=== PATIENT | male | born 1965 | race African-American/Black ===

== ENCOUNTER 2017-08-13 19:05 | Observation (INO) | payer OTHER ==
[2017-08-13 22:31] LABS: Anion Gap 18 mmol/L (10-20); BUN (Urea Nitrogen) 43 mg/dL (8.4-25.7); Calc. Creatinine Clearance 0 mL/min (70-130); Carbon Dioxide 21 mmol/L (22-29); Chloride 98 mmol/L (98-107); Estimated GFR-MDRD 23; Glucose 386 mg/dL (70-105); Potassium 4.3 mmol/L (3.5-5.1); Sodium 133 mmol/L (136-145)
[2017-08-13] MEDS ORDERED: Insulin Regular 300 UNITS/3 ML VIAL ONE (22:38)
[2017-08-13] MEDS ORDERED: HumaLOG 300 UNITS/3 ML VIAL SC PRN (22:58)
[2017-08-13] MEDS ORDERED: Dextrose 50% Abboject 50 ML SYRINGE SLOW IVP PRN (22:58)
[2017-08-13] MEDS ORDERED: Dextrose 5% in Water 1,000 ML IV PRN (22:58)
[2017-08-13 23:10] LABS: CKMB 1.6 ng/mL (0-6.6); Troponin I Less than 0.010 ng/mL (< 0.028)
[2017-08-13] MEDS ORDERED: Insulin Glargine 10 UNITS in Pre-Filled Syringe 1 EACH SC SCH (23:15)
[2017-08-14 00:02] VITALS: BMI 29.2
[2017-08-14 02:14] LABS: #Basophils 0.1 thou/uL (0.0-0.2); #Lymphocytes 2.8 thou/uL (1.20-3.40); #Monocytes 0.7 thou/uL (0.11-0.59); #Neutrophils 2.9 thou/uL (1.40-6.50); %Basophils 0.8 % (0.0-1.0); %Eosinophils 0.5 % (0.0-10.0); %Lymphocytes 43.2 % (21.0-51.0); %Monocytes 10.3 % (0.0-10.0); %Neutrophils 45.2 % (42.0-75.0); Hemoglobin 13.1 g/dL (14.0-18.0); Mean Corpuscular HGB CONC 35.2 g/dL (32.0-36.0); Mean Corpuscular Hemoglobin 33.5 pg (27.0-31.0); Mean Corpuscular Volume 95.2 fL (78.0-98.0); Mean Platelet Volume 7.9 fL (7.4-10.4); Platelet Count 212 thou/uL (130-400); RBC Distribution Width 12.4 % (11.5-14.5); Red Blood Cell (RBC) Count 3.91 mill/uL (4.70-6.10); White Blood Cell (WBC) Count 6.4 thou/uL (4.8-10.8)
[2017-08-14 02:36] LABS: Troponin I Less than 0.010 ng/mL (< 0.028)
[2017-08-14 03:54] LABS: Anion Gap 16 mmol/L (10-20); BUN (Urea Nitrogen) 38 mg/dL (8.4-25.7); Calc. Creatinine Clearance 38 mL/min (70-130); Calcium 9.7 mg/dL (7.8-10.44); Carbon Dioxide 22 mmol/L (22-29); Cardiac Risk 6.8 (Less than 4.5); Chloride 100 mmol/L (98-107); Cholesterol 277 mg/dl (< 200 Desired); Estimated GFR-MDRD 34; Glucose 281 mg/dL (70-105); HDL Cholesterol 41 mg/dL (>60 Neg Risk); LDL Cholesterol, Calculated 200 mg/dL; Potassium 3.9 mmol/L (3.5-5.1); Sodium 134 mmol/L (136-145); Triglycerides 180 mg/dL (Less than 150)
--- NOTE | 2017-08-14 04:46 | HP ---
CHIEF COMPLAINT: Chest pain. 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 The patient stated that he was eating alyssa nch today when he started having some sharp chest pain that was nonradiating. The patient stated kevin t he was also nauseated and had emesis x1. The patient felt that his pain continued to worsen throug hout the day so he decided to come into the ER for further evaluation. The patient currently is ches t pain free. The patient states that he had a cardiac catheterization in 2004, which was essentially negative. He also stated that he had a stress test about 4-5 years ago. The patient states that at home he controls his diabetes with Toujeo and does not really check his blood sugars at work because he has no way of checking it. Currently, denies any chest pain, nausea, vomiting, abdominal pain or any diarrhea. PAST MEDICAL HISTORY: History of diabetes, history of hyperlipidemia and hypertension. FAMILY HISTORY: Mother had diabetes and heart attack. She in the 60s. Father is still living, has heart disease. REVIEW OF SYSTEMS: All negative except for the ones mentioned above in the HPI. MEDICATIONS: The patient does not have the list in front of him; however, he states that he takes To ujeo. He takes lisinopril 10 mg daily, metformin 500 mg twice a day, glipizide 10 mg daily. PAST SURGICAL HISTORY: The patient stated that he had a right knee surgery, hernia repair and bilate ral rotator cuff repair. SOCIAL HISTORY: He drinks about 4 cans of beer a day. Denies any smoking history; however, he dips. No recreational drug use. PHYSICAL EXAMINATION: VITAL SIGNS: The patient is afebrile at 98.6, respirations 18, pulse 88, blood pressure 118/75. GENERAL: He is awake, alert, oriented x3, does not appear in any distress. CARDIOVASCULAR: S1, S2 present. No murmurs, rubs or gallops. ABDOMEN: Soft, nontender, bowel sounds present x2. No hepatomegaly, splenomegaly noted. EXTREMITIES: No edema. NEUROLOGIC: No focal deficits noted. SKIN: Intact. No bruises or lesions noted. LABORATORY DATA: Are as the following: Sodium of 133. Potassium 4.3, initially the potassium was 6 .2. Creatinine is 4.3, anion gap of 25, BUN of 43, creatinine of 3.36, and carbon dioxide of 21, blo od sugar was 482. Troponin x1 is negative. Lipase is 18. His D-dimer was 0.27. Chest x-ray no acu te abnormalities noted. EKG: He did have some T-wave inversions in his lateral leads. ASSESSMENT AND PLAN: The patient is a very pleasant 52-year-old male who presents to the hospital fo r chest pain. 1. Atypical chest pain. However, given the patient's risk factor being male, hypertension, diabetes , and family history mother dying at her early age. We will put patient to undergo a stress test in the morning if all of the troponins continued to remain negative. He does have some nonspecific T-wa ve changes in his lateral leads; however, I have no prior EKG for comparison. We will start the bharat ent on his aspirin and also we will start him on a statin. I will check lipid panel in the morning. 2. Hyperkalemia. This could be secondary to his lisinopril versus also maybe his diabetes or maybe a little bit of dehydration or maybe even a lab error since his initial creatinine was 5 and currentl y on repeat it was 3. His repeat potassium was back to normal. We will hold lisinopril for tonight and repeat a BMP in the morning. Also, we will continue to monitor. 3. Diabetes. I will check a hemoglobin A1c. The patient states his blood sugars last time he was i n the doctor's office was about 200. He does not check sugars at home. The patient's sugars have be en extensively high during the hospital stay. We will continue to monitor. Extensive education was given to the patient in regards to diabetes and renal disease. 4. Chronic kidney disease, unknown patient's baseline. However, the patient is aware that he does h ave kidney disease. Also, he is on lisinopril, most likely which is renal protective; however, we wi ll hold that for tonight. 5. Deep venous thrombosis prophylaxis. We will put patient on heparin subcu.
[2017-08-14 08:26] VITALS: TEMP 98
[2017-08-14] MEDS ORDERED: Aspirin 325 MG TAB PO SCH (09:00)
[2017-08-14] MEDS ORDERED: Famotidine/PF 20 mg/2ml Vial SLOW IVP SCH (09:00)
[2017-08-14 12:04] VITALS: BP 119/66
--- NOTE | 2017-08-14 12:32 | NM ---
MYOCARDIAL PERFUSION SCAN: The patient was given 10 mCi of technetium sestamibi for rest imaging and 32 mCi for stress imaging. Patient was stressed with exercise according to Arsalan protocol. Patient obtained 87% of maximal age-p redicted heart rate. INDICATION: Chest pain. The left ventricle is imaged with SPECT imaging and CT attenuation obtained. FINDINGS: On the nonattenuation images, there is loss of activity in the inferior wall, which is symmetric on s tress and rest images. This does correct with CT attenuation. There is no evidence of reversible ischemia. Wall motion is normal. The ejection fraction is recorded at 65%. IMPRESSION: Negative sestamibi stress test. POS: SHANTANU
--- NOTE | 2017-08-14 14:00 | DIS ---
DATE OF ADMISSION: 08/13/2017 DATE OF DISCHARGE: 08/14/2017 PRIMARY CARE PHYSICIAN: None. DISCHARGE DIAGNOSES: 1. Noncardiac chest pain. 2. Diabetes mellitus, type 2, without complications. 3. Chronic kidney disease, stage 3. 4. Hyperkalemia. CONSULTATIONS: None. PROCEDURES: Nuclear stress test, 07/14/2017, that was negative for ischemia. HISTORY AND PHYSICAL: Mr. Davey is a 52-year-old -[place] male with history of diabetes and chronic kidney disease, who comes to the emergency department for evaluation of chest discomfort. He was worked up in the emergency department and was negative. We were called for admit. HOSPITAL COURSE: The patient was seen and examined by Dr. Hernandez last night and placed in observatio n. Serial cardiac biomarkers were obtained and were negative and a stress test was ordered. The pat ient underwent a nuclear stress test that was unremarkable. He had no further symptoms and centrifugal spinner was negative and was stable for discharge with outpatient followup. Of note, his fasting lipid profile today did show hypertriglyceridemia and hypercholesterolemia. The patient was started on Lipitor 40 mg p.o. at bedtime and continued on aspirin 81 mg daily on dischar ge. DISCHARGE PHYSICAL EXAMINATION: The patient was seen and examined on the day of discharge. Discharg e plan and disposition were discussed with the patient and his [id number] at the bedside. DISCHARGE MEDICATIONS: New Medications: 1. Aspirin 81 mg daily, prescription sent. 2. Lipitor 40 mg p.o. at bedtime, prescription sent. MEDICINES TO CONTINUE: 1. Glipizide 10 mg daily. 2. Lantus 40 units subcu daily. 3. Lisinopril 10 mg daily. 4. Metformin 500 mg p.o. b.i.d. FOLLOWUP APPOINTMENTS: Primary care physician or in a care clinic in a week or so. DISCHARGE CONDITION: Stable. DISPOSITION: Will be discharged home via private vehicle. DISCHARGE ACTIVITY: Per cardiopulmonary limits. DISCHARGE DIET: Heart healthy diabetic diet recommended.
[2017-08-14] MEDS ORDERED: Insulin Glargine 10 UNITS in Pre-Filled Syringe 1 EACH SC SCH (21:00)
[2017-08-14] MEDS ORDERED: Atorvastatin Calcium 40 MG TAB PO SCH (21:00)
[2017-08-15] MEDS ORDERED: Famotidine 20 MG TAB PO SCH (09:00)
--- NOTE | 2017-08-15 11:32 | STRESS ---
Acquisition Time: 2017-08-14 09:55:50 Total Exercise Time: 00:10:30 Test Indications: CHEST PAIN Medications: Protocol: RAJINDER Max HR: 146 BPM 87% of Pred: 166 BPM Max BP: 132/082 mmHG Max Work Load: 13.4 METS RESTING ECG: NORMAL SINUS RHYTHM AT 72 BPM WITH NON-SPECIFIC T-WAVE CHANGES AND EARLY REPOLARIZATION SYMTPOMS: DYSPNEA ON EXERTION NORMAL BP REPONSE ECTOPY: NONE ECG STRESS: NO SIGNIFICANT CHANGES INTERPRETATION: AWAIT NUCLEAR IMAGES FOR DEFINITIVE DIAGNOSIS ST SEGMENTS NORMALIZE WITH EXERTION Confirmed by CHANTELL KUMAR ([id number]), department editor ROSELINE GALLARDO ([id number]) on 08/15/2017 11:31:37 AM Referred By: MD Grazyna CASTRO Confirmed By:CHANTELL KUMAR
== END 2017-08-14 14:46 | disposition home or self-care (01) ==
LOC: ERS 19:05 → 2SW 23:10
PROVIDERS: ADMIT Internal Medicine; ATTEND Internal Medicine
DX: R07.89 Other chest pain (principal); E11.22 Type 2 diabetes mellitus with diabetic chronic kidney disease; N18.3 Chronic kidney disease, stage 3 (moderate); E87.5 Hyperkalemia; Z88.0 Allergy status to penicillin; Z79.4 Long term (current) use of insulin; Z79.899 Other long term (current) drug therapy
CPT/HCPCS: 36415; 36416; 78452; 80048; 80061; 83036; 84484; 85025; 93005; 93017; 94760; 96361; 96374; A9500; G0378; J1815